=== PATIENT | female | born 1995 | race African-American/Black ===

== ENCOUNTER 2017-06-24 09:23 | Emergency (ER) | payer MEDICAID, OTHER ==
[~2017-06-24] VITALS: Ht 162.6 cm; Wt 75.0 kg
[2017-06-24] MEDS ORDERED: ACETAMINOPHEN 325MG TABLET PO ONE (11:45)
[2017-06-24] MEDS ORDERED: MECLIZINE 25MG TABLET PO ONE (11:45)
[2017-06-24 12:21] VITALS: BP 104/68
== END 2017-06-24 12:39 | disposition home or self-care (01) ==
LOC: ER 09:23
DX: R42 Dizziness and giddiness (principal); F12.10 Cannabis abuse, uncomplicated
CPT/HCPCS: 81025; 99284; Z7610; J8597

== ENCOUNTER 2017-08-01 07:31 | Emergency (ER) | payer OTHER ==
[2017-08-01] MEDS ORDERED: ACETAMINOPHEN 500MG TABLET PO ONE (11:30)
[2017-08-01 13:26] VITALS: BP 118/80
== END 2017-08-01 13:27 | disposition home or self-care (01) ==
LOC: ER 07:31
DX: O26.891 Other specified pregnancy related conditions, first trimester (principal); R07.2 Precordial pain; F12.10 Cannabis abuse, uncomplicated; Z3A.12 12 weeks gestation of pregnancy
CPT/HCPCS: 71010; 81025; 93005; 99284; Z7610

== ENCOUNTER 2018-02-12 07:45 | Inpatient (IN) | payer MEDICAID ==
[~2018-02-12] VITALS: Ht 165.1 cm; Wt 95.3 kg
[2018-02-12] MEDS ORDERED: FERR325T6 MT (07:56)
[2018-02-12] MEDS ORDERED: PNV1TABL76 PO (07:56)
[2018-02-12] MEDS ORDERED: DEXT 5%/LR + PITOCIN 20UNITS/L 1,000 ML IV SCH (07:58)
[2018-02-12] MEDS ORDERED: CARBOPROST TROMETHAMINE 250 MCG/ML AMPUL IM PRN (08:00)
[2018-02-12] MEDS ORDERED: METHYLERGONOVINE MALEATE 0.2 MG/ML IM PRN ×2 (08:00→16:30)
[2018-02-12] MEDS ORDERED: BUTORPHANOL TARTRATE 2 MG/ML VIAL IV PRN (08:00)
[2018-02-12] MEDS ORDERED: LIDOCAINE HCL 1% 20ML VIAL (Pyxis) INJ INFIL SCH (08:00)
[2018-02-12] MEDS ORDERED: NALOXONE HCL 0.4 MG/ML 1ML VIAL IM PRN (08:00)
[2018-02-12] MEDS ORDERED: MISOPROSTOL 200MCG TABLET VG SCH (08:15)
[2018-02-12] MEDS: LACTATED RINGERS 1,000 ML IV SCH ×2 (08:23→12:24)
[2018-02-12] MEDS ORDERED: PENICILLIN G POTASSIUM 5 MMU in DEXT 5% WATER 100 ML IV SCH (08:30)
[2018-02-12 08:32] LABS: KETONES URINE NEGATIVE (NEGATIVE); LEUKOCYTE ESTERASE URINE 1+ (NEGATIVE); NITRITE URINE NEGATIVE (NEGATIVE); OCCULT BLOOD URINE 3+ (NEGATIVE); PROTEIN URINE 2+ (NEGATIVE); SPECIFIC GRAVITY URINE 1.009 (1.005-1.030); UROBILINOGEN URINE 0.2 E.U./dL (0.2-1.0)
[2018-02-12 08:33] LABS: BASOPHILS % 0.2 % (0.0-2.0); EOSINOPHILS % 0.1 % (0.0-5.0); HEMATOCRIT. 37.9 % (36.0-48.0); HEMOGLOBIN. 12.6 g/dL (12.0-16.0); LYMPHOCYTES % 18.4 % (20.0-50.0); MEAN CORPUSCULAR HEMOGLOBIN 28.3 pg (28.0-32.0); MEAN CORPUSCULAR VOLUME 85.1 fL (81.0-99.0); NEUTROPHILS % 70.3 % (40.0-76.0); RED BLOOD CELL COUNT 4.46 mill/uL (4.2-5.4); RED CELL DISTRIBUTION WIDTH 13.1 % (11.6-14.6)
[2018-02-12 08:35] LABS: CLARITY URINE TURBID (CLEAR); COLOR URINE DARK YELLOW (YELLOW)
[2018-02-12 08:38] LABS: CHLORIDE 108 mEq/L (98-107)
[2018-02-12 08:42] LABS: D-DIMER 2.54 mg/L FEU (<0.50); INR 0.9; PARTIAL THROMBOPLASTIN TIME 26.8 sec (23.4-31.0); PROTHROMBIN TIME 9.7 sec (9.4-11.6)
[2018-02-12 09:18] LABS: *AMPHETAMINES SCREEN URINE NEGATIVE (NEGATIVE); *BARBITURATES SCREEN URINE NEGATIVE (NEGATIVE); *BENZODIAZEPINES SCREEN URINE NEGATIVE (NEGATIVE); *COCAINE SCREEN URINE NEGATIVE (NEGATIVE)
[2018-02-12 09:19] LABS: CANNABINOID URINE SCREEN NEGATIVE (NEGATIVE); METHADONE URINE SCREEN NEGATIVE (NEGATIVE); OPIATES URINE SCREEN NEGATIVE (NEGATIVE); PHENCYCLIDINE URINE SCREEN NEGATIVE (NEGATIVE)
[2018-02-12 09:20] LABS: MEAN PLATELET VOLUME 12.3 fl (7.4-10.4); PLATELET 147 x1000/uL (130-400)
[2018-02-12] MEDS ORDERED: FENTANYL CITRATE/PF 50MCG/ML 2ML VIAL ONE (09:40)
[2018-02-12] MEDS ORDERED: BUPIVACAINE HCL/NS/PF EPIDURAL 100 ML EP ONE (09:40)
[2018-02-12] MEDS ORDERED: BUPIVACAINE HCL/PF 0.25% (2.5MG/ML) 10ML ONE (09:43)
[2018-02-12 10:08] LABS: HEPATITIS B SURFACE ANTIGEN NEGATIVE; RUBELLA IGG 300.5 IU/mL (4.99-10)
[2018-02-12] MEDS ORDERED: NALOXONE HCL 0.4 MG/ML 1ML VIAL IV PRN (10:30)
[2018-02-12] MEDS ORDERED: ONDANSETRON HCL 4MG/2ML VIAL IM PRN (10:30)
[2018-02-12] MEDS ORDERED: DIPHENHYDRAMINE 50MG/ML VIAL IM PRN (10:30)
[2018-02-12] MEDS ORDERED: PENICILLIN G POTASSIUM 2.5 MMU in DEXTROSE 5% WATER 50 ML IV SCH (12:30)
[2018-02-12] MEDS ORDERED: LIDOCAINE HCL/PF 1% 10 MG/ML 5ML VIAL ONE (15:59)
[2018-02-12] MEDS ORDERED: IBUPROFEN 400MG TABLET PO PRN (16:30)
[2018-02-12] MEDS ORDERED: RHO(D) IMMUNE GLOBULIN 300 MCG/SYR IM PRN (16:30)
[2018-02-12] MEDS ORDERED: DIPHENHYDRAMINE 25MG CAPSULE PO PRN (16:30)
[2018-02-12] MEDS: DEXT 5%/LR + PITOCIN 20UNITS/L 1,000 ML IV SCH ×2 (17:53→20:50)
[2018-02-12 18:30] VITALS: BP 122/61
[2018-02-12 22:00] VITALS: BP 108/55
[2018-02-13] VITALS: BP 110/65
[2018-02-13 06:00] VITALS: BP 112/68
[2018-02-13 06:58] LABS: BASOPHILS % 0.1 % (0.0-2.0); HEMATOCRIT. 31.6 % (36.0-48.0); HEMOGLOBIN. 10.7 g/dL (12.0-16.0); LYMPHOCYTES % 8.3 % (20.0-50.0); MEAN CORPUSCULAR HEMOGLOBIN 28.5 pg (28.0-32.0); MEAN CORPUSCULAR VOLUME 84.1 fL (81.0-99.0); MONOCYTES % 9.3 % (2.0-8.0); NEUTROPHILS % 82.3 % (40.0-76.0); PLATELET 125 x1000/uL (130-400); RED BLOOD CELL COUNT 3.76 mill/uL (4.2-5.4); RED CELL DISTRIBUTION WIDTH 13.2 % (11.6-14.6)
[2018-02-13 08:15] VITALS: BP 114/60
[2018-02-13] MEDS ORDERED: PRENATAL VIT/FE FUMARATE/FA TABLET PO SCH (09:00)
[2018-02-13] MEDS: IBUPROFEN 800MG TABLET PO PRN ×2 (09:54→16:52)
[2018-02-13 16:20] VITALS: BP 108/60
[2018-02-13 22:00] VITALS: BP 113/61
[2018-02-14 06:00] VITALS: BP 110/66
[2018-02-14 06:56] LABS: HEMATOCRIT 28.9 % (36.0-48.0); HEMOGLOBIN 9.8 g/dL (12.0-16.0); MEAN CORPUSCULAR HEMOGLOBIN 28.8 pg (28.0-32.0); MEAN CORPUSCULAR VOLUME 84.9 fL (81.0-99.0); PLATELET 131 x1000/uL (130-400); RED BLOOD CELL COUNT 3.41 mill/uL (4.2-5.4); RED CELL DISTRIBUTION WIDTH 13.4 % (11.6-14.6)
[2018-02-14 08:00] VITALS: BP 113/46
== END 2018-02-14 11:30 | disposition home or self-care (01) | DRG 560 ==
LOC: L&D 07:45 → OBSVTOIN 07:45 → 7EST PP/OB 18:12
PROVIDERS: ADMIT Obstetrics & Gynecology; ATTEND Obstetrics & Gynecology
PROC: 0W8NXZZ Division of Female Perineum, External Approach (ICD-10-PCS; 2018-02-12)
PROC: 3E0S3BZ Introduction of Anesthetic Agent into Epidural Space, Percutaneous Approach (ICD-10-PCS; 2018-02-12)
PROC: 00HU33Z Insertion of Infusion Device into Spinal Canal, Percutaneous Approach (ICD-10-PCS; 2018-02-12)
PROC: 10E0XZZ Delivery of Products of Conception, External Approach (ICD-10-PCS; principal; 2018-02-12 15:50)
DX: O48.0 Post-term pregnancy (principal); D62 Acute posthemorrhagic anemia; O99.03 Anemia complicating the puerperium; D72.829 Elevated white blood cell count, unspecified; O99.13 Other diseases of the blood and blood-forming organs and certain disorders involving the immune mechanism complicating the puerperium; O77.0 Labor and delivery complicated by meconium in amniotic fluid; Z3A.40 40 weeks gestation of pregnancy; Z37.0 Single live birth; Z79.899 Other long term (current) drug therapy
CPT/HCPCS: 36415; 80053; 80305; 81003; 84550; 85025; 85027; 85379; 85610; 85730; 86592; 86703; 86762; 86850; 86900; 87340; J2540; J2590; J3010; J3490; J7030; J7040; J7060; J7120; A4315

== ENCOUNTER 2020-11-08 09:27 | Observation (INO) | payer MEDICAID ==
[~2020-11-08] VITALS: Ht 160 cm; Wt 88.0 kg
[2020-11-08] MEDS ORDERED: PREN1TAB23 PO (10:14)
[2020-11-08] MEDS ORDERED: FOLIC (23:35)
== END 2020-11-08 11:35 | disposition home or self-care (01) ==
LOC: 8 EST LDRP 09:27
PROVIDERS: ADMIT Obstetrics & Gynecology; ATTEND Obstetrics & Gynecology
DX: O62.9 Abnormality of forces of labor, unspecified (principal); Z3A.38 38 weeks gestation of pregnancy
CPT/HCPCS: 59025; G0378; 99281